=== PATIENT | female | born 2000 | race African-American/Black ===

== ENCOUNTER 2019-02-28 11:59 | Emergency (ER) | payer MEDICAID, OTHER ==
[~2019-02-28] VITALS: Ht 170.2 cm; Wt 84.4 kg
[2019-02-28 12:13] VITALS: BP 128/75
[2019-02-28] MEDS ORDERED: PREN-96 PO (12:42)
== END 2019-02-28 13:05 | disposition home or self-care (01) ==
LOC: ER 11:59 → LDRP 12:25
PROVIDERS: ADMIT Obstetrics & Gynecology; ATTEND Obstetrics & Gynecology
DX: O62.9 Abnormality of forces of labor, unspecified (principal); Z3A.37 37 weeks gestation of pregnancy
CPT/HCPCS: 59025; 81002; 99284; G0378